=== PATIENT | male | born 1950 | race Caucasian/White ===

== ENCOUNTER 2017-05-30 08:25 | Emergency (ER) | payer MEDICARE, MEDICAID ==
--- NOTE | 2017-05-30 09:47 | RADIOLOGY REPORT (SQ) ---
EXAM DESCRIPTION: ANKLE RIGHT COMPLETE COMPLETED DATE/TIME: 05/30/2017 9:33 am REASON FOR STUDY: ankle pain COMPARISON: None. TECHNIQUE: Three views study right ankle LIMITATIONS: None. FINDINGS: An oblique fracture seen of the distal fibula just above the ankle. No opening up of the ankle mortise. Soft tissue swelling noted. IMPRESSION: Oblique nondisplaced fracture distal fibula. TECHNICAL DOCUMENTATION: JOB ID: [id number] [employer]- All Rights Reserved
[2017-05-30] MEDS ORDERED: HYDROCODONE/ACETAMINOPHEN 5-325 MG TABLET PO ONE (10:53)
--- NOTE | 2017-05-30 10:56 | ER Document Report ---
ED General - General TRAVEL OUTSIDE OF THE [place] IN LAST 30 DAYS: No - HPI Patient complains to provider of: Right ankle injury - General Chief Complaint: Ankle Injury Stated Complaint: FALL/ANKLE PAIN Time Seen by Provider: 05/30/17 08:53 - HPI Notes: Patient coming in for evaluation of right ankle injury states that he missed a doorstep day prior to arrival. Patient states swelling to the ankle most the pain of the lateral malleolus. Denies any fevers chills nausea vomiting denies any other trauma. (VICENTA KENNEDY) - Related Data Allergies/Adverse Reactions: No Known Allergies Allergy (Verified 05/30/17 08:28) Past Medical History - Social History Smoking Status: Current Every Day Smoker Family History: Reviewed & Not Pertinent Patient has suicidal ideation: No Patient has homicidal ideation: No - Past Medical History Cardiac Medical History: Reports: Hx Hypercholesterolemia, Hx Hypertension Pulmonary Medical History: Reports: Hx COPD Renal/ Medical History: Denies: Hx Peritoneal Dialysis Review of Systems - Review of Systems Constitutional: No symptoms reported EENT: No symptoms reported Cardiovascular: No symptoms reported Respiratory: No symptoms reported Gastrointestinal: No symptoms reported Genitourinary: No symptoms reported Male Genitourinary: No symptoms reported Musculoskeletal: Ankle swelling Skin: No symptoms reported Hematologic/Lymphatic: No symptoms reported Neurological/Psychological: No symptoms reported -: Yes All other systems reviewed and negative Physical Exam - Vital signs Interpretation: Normal - General General appearance: Appears well, Alert - HEENT Head: Normocephalic, Atraumatic Eyes: Normal Pupils: PERRL - Respiratory Respiratory status: No respiratory distress Chest status: Nontender Breath sounds: Normal Chest palpation: Normal - Cardiovascular Rhythm: Regular Heart sounds: Normal auscultation Murmur: No - Abdominal Inspection: Normal Distension: No distension Bowel sounds: Normal Tenderness: Nontender Organomegaly: No organomegaly - Back Back: Normal, Nontender - Extremities General upper extremity: Tender - Patient tender on palpation of the lateral malleolus. Swelling of the lateral malleolus as well. There is no tenderness to the calf squeeze her in the proximal tib-fib area on the right side. Left side unaffected, Normal color, Normal strength, Normal temperature. No: Normal inspection, Nontender, Normal ROM General lower extremity: Normal inspection, Nontender, Normal color, Normal ROM , Normal temperature, Normal weight bearing. No: Octavio's sign - Neurological Neuro grossly intact: Yes Cognition: Normal Orientation: AAOx4 [place] Coma Scale Eye Opening: Spontaneous [place] Coma Scale Verbal: Oriented [place] Coma Scale Motor: Obeys Commands Rose Coma Scale Total: 15 Speech: Normal Motor strength normal: LUE, RUE, LLE, RLE Sensory: Normal - Psychological Associated symptoms: Normal affect, Normal mood - Skin Skin Temperature: Warm Skin Moisture: Dry Skin Color: Normal - Vital signs Vitals: Temp Pulse Resp BP Pulse Ox 98.3 F 110 H 20 155/84 H 96 05/30/17 08:28 05/30/17 08:28 05/30/17 08:28 05/30/17 08:28 05/30/17 08:28 Course - Re-evaluation Re-evalutation: 05/30/17 15:30 X-ray shows a distal fibular fracture patient was placed in a ankle stirrup splint and pain medication and crutches. Patient was to follow with orthopedic and will be discharged home (VICENTA KENNEDY) - Vital Signs Vital signs: Temp Pulse Resp BP Pulse Ox 98.0 F 97 18 156/92 H 99 05/30/17 11:18 05/30/17 11:18 05/30/17 11:18 05/30/17 11:18 05/30/17 11:18 Discharge - Discharge Clinical Impression: Closed fracture of right distal fibula Qualifiers: Encounter type: initial encounter Fracture morphology: unspecified fracture morphology Qualified Code(s): S82.831A - Other fracture of upper and lower end of right fibula, initial encounter for closed fracture Condition: Good Disposition: HOME, SELF-CARE Instructions: Ankle Stirrup Splint ([facility]), Oral Narcotic Medication ([facility]), Use of Crutches ([facility]), Ice & Elevation ([facility]), Fracture of Distal Fibula ([facility]) Additional Instructions: X-ray today shows signs of a distal fibular fracture. We will place you in a splint. Please follow-up with your doctor and orthopedic doctor provided. Return to ER symptoms worsen take pain medication as prescribed take Tylenol Motrin for regular pain take the prescription pain medication for severe pain. Prescriptions: Hydrocodone Bit/Acetaminophen [Hydrocodon-Acetaminophen 5-325] 1 each PO Q6 #20 tablet Referrals: [facility] [Primary Care Provider] - Follow up in 3-5 days NOE JOSEPH MD [ACTIVE STAFF] - Follow up tomorrow
[2017-05-30 11:21] VITALS: BP 156/92
== END 2017-05-30 11:19 | disposition home or self-care (01) ==
LOC: ER 08:25
DX: S82.831A Other fracture of upper and lower end of right fibula, initial encounter for closed fracture (principal); W19.XXXA Unspecified fall, initial encounter; F17.200 Nicotine dependence, unspecified, uncomplicated
CPT/HCPCS: 99283; L1902

== ENCOUNTER 2018-06-24 07:26 | Emergency (ER) | payer MEDICARE, MEDICAID ==
[2018-06-24] MEDS ORDERED: METHYLPREDNISOLONE INJ 125 MG/2 ML SDV IV ONE (07:55)
[2018-06-24] MEDS ORDERED: IPRATROPIUM/ALBUTEROL 0.5-2.5 MG/3 ML AMPUL NEB ONE (07:55)
[2018-06-24] MEDS ORDERED: CEFTRIAXONE INJ 1000 MG VIAL IV ONE (07:56)
--- NOTE | 2018-06-24 08:00 | ER Document Report ---
ED Respiratory Problem - General Chief Complaint: Cough Stated Complaint: COUGH Time Seen by Provider: 06/24/18 07:49 Mode of Arrival: Ambulatory Information source: Patient TRAVEL OUTSIDE OF THE [place] IN LAST 30 DAYS: No - HPI Patient complains to provider of: COPD, Cough, Short of breath Onset: Last week Quality of pain: No pain Context: Hx COPD, Smoker Short of Breath: Moderate Cough: Productive - White thick sputum Notes: 68-year-old male history of COPD presents to the ER complaining of cough and shortness of breath 1 week. The patient stated his cough is been progressively getting worse she has been coughing up thick white sputum. He does have an inhaler he has been using. He has not seen his doctor in 3 months last appointment he was supposed to have a sleep study but never showed up. The patient is a continued smoker. He denies any chest pain. Denies sore throat. Denies calf pain or leg swelling denies black or tarry stores states his shortness of breath has been worse at night especially with coughing. Nothing else seems to make it better or worse exertion does not seem to make it better or worse. Denies any abdominal pain. - Related Data Allergies/Adverse Reactions: No Known Allergies Allergy (Verified 06/24/18 07:28) Past Medical History - Social History Smoking Status: Current Every Day Smoker Family History: Reviewed & Not Pertinent - Past Medical History Cardiac Medical History: Reports: Hx Hypercholesterolemia, Hx Hypertension Pulmonary Medical History: Reports: Hx COPD Renal/ Medical History: Denies: Hx Peritoneal Dialysis Review of Systems - Review of Systems Constitutional: denies: Chills, Fever Cardiovascular: denies: Chest pain, Edema Respiratory: Cough, Short of breath, Wheezing. denies: Hurts to breathe, Hemoptysis Gastrointestinal: denies: Abdominal pain, Nausea, Vomiting -: Yes All other systems reviewed and negative Physical Exam - Vital signs Vitals: Temp Pulse Resp BP Pulse Ox 97.7 F 89 22 H 155/90 H 93 06/24/18 07:32 06/24/18 07:32 06/24/18 07:32 06/24/18 07:32 06/24/18 07:32 - Notes Notes: GENERAL_APPEARANCE: well_nourished, alert, cooperative VITALS: reviewed, see vital signs table. HEAD: no_swelling\tenderness on the head. EYES: PERRL, EOMI, conjunctiva_clear. NOSE: no_nasal_discharge. MOUTH: (-)decreased moisture. THROAT: no_tonsilar_inflammation, no_airway_obstruction. no_lymphadenopathy NECK: supple, no_neck_tenderness, (-)thyromegaly. BACK: no_back_tenderness. CHEST_WALL: no_chest_tenderness. LUNGS: Scattered_wheezing, no_rales, no_rhonchi, (-)accessory muscle use, good air exchange bilateral. HEART: normal_rate, normal_rhythm, normal_S1, normal_S2, (-)S3, (-)S4, no_ murmur, no_rub. ABDOMEN: normal_BS, soft, no_abd_tenderness, (-)guarding, (-)rebound, no_ organomegaly, no_abd_masses. EXTREMITIES: good pulses in all_extremities, no_swelling\tenderness in the extremities, no_edema. SKIN: warm, dry, good_color, no_rash. MENTAL_STATUS: speech_clear, oriented_X_3, normal_affect, responds_ appropriately to questions. Course - Re-evaluation Re-evalutation: 06/24/18 07:59 68-year-old male history of COPD who presents with increasing shortness of breath and cough for 1 week. We will give aerosol treatment steroids antibiotics. We will get a chest x-ray to rule out pneumonia pneumothorax. Will get some generalized blood work EKG. 06/24/18 09:54 Patient feels better after aerosol treatment steroids and a dose of antibiotics. There is no pneumonia or pneumothorax seen. He is feeling much better he does not have a nebulizer machine at home. I will prescribe him one. We will send him home on a prednisone taper. We will have him follow-up with his primary care doctor and explained the importance of follow-up and compliance. He did not want to have a sleep study but I explained the dangers of obstructive sleep apnea especially in the presence of COPD. Prolonged hypoxemia at night. CO2 retention. He verbalized understanding and will follow up with his primary care doctor. - Vital Signs Vital signs: Temp Pulse Resp BP Pulse Ox 97.7 F 89 22 H 155/90 H 98 06/24/18 07:32 06/24/18 07:32 06/24/18 07:32 06/24/18 07:32 06/24/18 07:55 - Laboratory Result Diagrams: 06/24/18 08:15 06/24/18 08:15 Laboratory results interpreted by me: 06/24/18 06/24/18 08:15 08:15 Plt Count 148 L Eosinophils % 9.0 H Glucose 123 H ALT 111 H - Diagnostic Test Radiology reviewed: Image reviewed Radiology results interpreted by me: 06/24/18 09:54 Chest X-Ray 06/24/18 07:55 IMPRESSION: NO ACUTE RADIOGRAPHIC FINDING IN THE CHEST. - EKG Interpretation by Me EKG shows normal: Sinus rhythm Rate: Normal Rhythm: NSR [place]/QRS: RBBB When compared to previous EKG there are: No significant change Discharge - Discharge Clinical Impression: COPD (chronic obstructive pulmonary disease) Qualifiers: COPD type: COPD with acute exacerbation Qualified Code(s): J44.1 - Chronic obstructive pulmonary disease with (acute) exacerbation Condition: Good Disposition: HOME, SELF-CARE Instructions: Chronic Obstructive Lung Disease ([facility]) Additional Instructions: His follow-up with your family doctor for further care Prescriptions: Albuterol Sulfate [Albuterol Sulfate 2.5mg/3 mL] 1 vial IH Q4 PRN #25 vial PRN Reason: wheezing Azithromycin [Zithromax 250 mg Tablet] 250 mg PO ASDIR PRN #6 tablet PRN Reason: Nebulizer [Nebulizer Machine] 1 each MC ASDIR PRN #1 kit PRN Reason: Prednisone [Deltasone 20 mg Tablet] 3 tab PO DAILY 5 Days tablet
[2018-06-24 08:33] LABS: ABSOLUTE BASOPHILS # (AUTO) 0.1 10^3/uL (0.0-0.2); ABSOLUTE EOSINOPHILS # (AUTO) 0.5 10^3/uL (0.0-0.6); ABSOLUTE LYMPHOCYTES (AUTO) 1.3 10^3/uL (0.5-4.7); ABSOLUTE MONOCYTES (AUTO) 0.5 10^3/uL (0.1-1.4); ABSOLUTE NEUT (AUTO) 3.4 10^3/uL (1.7-8.2); BASOPHILS % (AUTO) 1.4 % (0-2); HEMATOCRIT 42.5 % (37.9-51.0); LYMPHOCYTES % (AUTO) 22.7 % (13-45); MEAN CORPUSCULAR HEMOGLOBIN 33.4 pg (27.0-33.4); MEAN CORPUSCULAR HGB CONC 35.2 g/dL (32.0-36.0); MEAN CORPUSCULAR VOLUME 95 fl (80-97); PLATELET COUNT 148 10^3/uL (150-450); RED BLOOD COUNT 4.48 10^6/uL (4.35-5.55); RED CELL DISTRIBUTION WIDTH 13.5 % (11.5-14.0); SEGMENTED NEUTROPHILS % (AUTO) 57.9 % (42-78); TOTAL CELLS COUNTED % (AUTO) 100 %
[2018-06-24 08:48] LABS: ALANINE AMINOTRANSFERASE 111 U/L (21-72); ALBUMIN 4.5 g/dL (3.5-5.0); ALKALINE PHOSPHATASE 45 U/L (38-126); ANION GAP 12 (5-19); ASPARTATE AMINO TRANSFERASE 57 U/L (17-59); BILIRUBIN,DIRECT 0.2 mg/dL (0.0-0.4); BILIRUBIN,TOTAL 0.5 mg/dL (0.2-1.3); BLOOD UREA NITROGEN 17 mg/dL (7-20); CALCIUM 9.1 mg/dL (8.4-10.2); CARBON DIOXIDE 26 mmol/L (22-30); CHLORIDE 101 mmol/L (98-107); GLUCOSE 123 mg/dL (75-110); POTASSIUM 4.3 mmol/L (3.6-5.0); SODIUM 138.7 mmol/L (137-145); TOTAL PROTEIN 7.3 g/dL (6.3-8.2)
--- NOTE | 2018-06-24 08:51 | RADIOLOGY REPORT (SQ) ---
EXAM DESCRIPTION: CHEST SINGLE VIEW COMPLETED DATE/TIME: 06/24/2018 8:25 am REASON FOR STUDY: sob COMPARISON: 06/27/2016 EXAM PARAMETERS: NUMBER OF VIEWS: One view. TECHNIQUE: Single frontal radiographic view of the chest acquired. RADIATION DOSE: NA LIMITATIONS: None. FINDINGS: LUNGS AND PLEURA: Chronic elevation right diaphragm. No developing infiltrate. MEDIASTINUM AND HILAR STRUCTURES: No masses. Contour normal. HEART AND VASCULAR STRUCTURES: Heart normal in size. Normal vasculature. BONES: No acute findings. HARDWARE: None in the chest. OTHER: No other significant finding. IMPRESSION: NO ACUTE RADIOGRAPHIC FINDING IN THE CHEST. TECHNICAL DOCUMENTATION: JOB ID: [id number] [employer]- All Rights Reserved Reading location - IP/workstation name: [email or web address]
[2018-06-24 09:00] LABS: NT PRO BNP 37 pg/mL (5-900)
[2018-06-24 09:01] LABS: TROPONIN I < 0.012 ng/mL
--- NOTE | 2018-06-24 09:03 | EKG REPORT ---
SEVERITY:- ABNORMAL ECG - SINUS RHYTHM RIGHT BUNDLE BRANCH BLOCK : Confirmed by: Angeles Hernández 24-Jun-2018 09:02:48
[2018-06-24 10:15] VITALS: BP 139/89
== END 2018-06-24 10:15 | disposition home or self-care (01) ==
LOC: ER 07:26
DX: J44.1 Chronic obstructive pulmonary disease with (acute) exacerbation (principal); R05 Cough; R06.02 Shortness of breath; I10 Essential (primary) hypertension; F17.200 Nicotine dependence, unspecified, uncomplicated; I45.10 Unspecified right bundle-branch block
CPT/HCPCS: 93005; 94640; 99284; 96374; 36415; 85025; 80053; 84484; 83880; 71045; 93010; J2930; J0696; A9270; 96365; 96375; J7620